=== PATIENT | female | born 1960 | race Caucasian/White ===

== ENCOUNTER 2019-03-04 10:12 | Day surgery (SDC) | payer BC ==
[~2019-03-04] VITALS: Ht 160 cm; Wt 79.5 kg
[~2019-03-04 10:12] MED LIST: ALBU90OI6 INH; Calcium Ascorb500 MG PO; LEVSOD125 PO; NAPR500 PO; VITAMIN D32000 UNIT PO
== END 2019-03-04 12:45 | disposition home or self-care (01) ==
LOC: ORSCSDS 10:12
PROVIDERS: Surgery
PROC: 0DJD8ZZ Inspection of Lower Intestinal Tract, Via Natural or Artificial Opening Endoscopic (ICD-10-PCS; principal; 2019-03-04 11:30)
DX: Z12.11 Encounter for screening for malignant neoplasm of colon (principal); K57.30 Diverticulosis of large intestine without perforation or abscess without bleeding; E03.9 Hypothyroidism, unspecified; J45.909 Unspecified asthma, uncomplicated; Z79.899 Other long term (current) drug therapy
CPT/HCPCS: J2704; J7120